=== PATIENT | male | born 1970 | race Native Hawaiian/Other Pacific Islander ===

== ENCOUNTER 2019-04-30 17:23 | Emergency (ER) | payer OTHER ==
[~2019-04-30] VITALS: Ht 172.7 cm; Wt 59.0 kg
[2019-04-30 19:30] VITALS: BP 118/76; TEMP 99.7
== END 2019-04-30 19:33 | disposition home or self-care (01) ==
LOC: ED 17:23
DX: K04.7 Periapical abscess without sinus (principal); K02.9 Dental caries, unspecified
CPT/HCPCS: 96372; 99282; J1885

== ENCOUNTER 2021-05-16 09:51 | Outpatient (CLI) | payer OTHER | END 2021-05-16 18:53 | disposition home or self-care (01) | LOC: LAB 09:51 | PROVIDERS: ATTEND Family Medicine | DX: R50.9 Fever, unspecified (principal); R05.9 Cough, unspecified | CPT/HCPCS: 87635; G2023; U0003 ==